=== PATIENT | male | born 1955 | race Caucasian/White ===

== ENCOUNTER → 2024-10-13 09:04 | Outpatient (CLI) | payer MEDICARE, SELFPAY ==
[2024-10-13 09:59] LABS: Hematocrit 44.5 % (41-53); Hemoglobin 15.6 g/dL (13.5-17.5); Mean Corpuscular HGB Conc 35.1 % (30-36); Mean Corpuscular Hemoglobin 33.4 PG (26-34); Mean Corpuscular Volume 95.1 fL (80-100); Platelet Count 262 X10^3/uL (150-400); Red Blood Cell Count 4.68 X10^6/uL (4.5-5.9); White Blood Cell Count 5.5 X10^3/uL (4.5-11.0)
[2024-10-13 10:19] LABS: Creatinine Urine Random 97.09 mg/dL
[2024-10-13 10:27] LABS: Microalbumin Urine Random < 0.6 mg/dL (0-1.6)
[2024-10-13 10:34] LABS: Alanine Aminotransferase 28 IU/L (<50); Albumin 4.6 g/dL (3.5-5.0); Albumin Globulin Ratio 1.8 (1.0-2.8); Alkaline Phosphatase 62 U/L (38-126); Aspartate Aminotransferase 31 IU/L (17-59); BUN Creatinine Ratio 15.2 (6-22); Bilirubin Total 1.1 mg/dL (0.2-1.3); Blood Urea Nitrogen 14 mg/dL (9-20); Calcium 9.7 mg/dL (8.4-10.2); Carbon Dioxide 27 mmol/L (22-32); Chloride 104 mmol/L (98-107); Cholesterol 229 mg/dL (140-199); Estimated Glomerular Filt Rate > 60 mL/min (>60); Globulin 2.5 g/dL (1.7-4.1); Glucose 113 mg/dL (80-110); HDL Cholesterol 75 mg/dL (40-60); HEMOLYSIS < 15 (0-50); LDL Cholesterol Calculated 138 mg/dL (<100); Potassium 5.7 mmol/L (3.4-5.1); Sodium 137 mmol/L (137-145); Total Protein 7.1 g/dL (6.3-8.2); Triglycerides 80 mg/dL (35-150)
== END ==
PROVIDERS: PCP Family Medicine; Referring Provider Family Medicine; Visit Provider Family Medicine
DX: I10 Essential (primary) hypertension (principal); E78.5 Hyperlipidemia, unspecified
CPT/HCPCS: 36415; 80053; 80061; 82043; 82570; 85027

== ENCOUNTER → 2024-10-18 09:04 | Outpatient (CLI) | payer MEDICARE, SELFPAY ==
[2024-10-18 11:14] LABS: BUN Creatinine Ratio 18.2 (6-22); Blood Urea Nitrogen 18 mg/dL (9-20); Calcium 10.3 mg/dL (8.4-10.2); Carbon Dioxide 28 mmol/L (22-32); Chloride 99 mmol/L (98-107); Estimated Glomerular Filt Rate > 60 mL/min (>60); Glucose 91 mg/dL (70-99); HEMOLYSIS < 15 (0-50); Potassium 4.7 mmol/L (3.4-5.1); Sodium 138 mmol/L (137-145)
[2024-10-18 11:45] LABS: Prostate Specific Antigen Scrn 1.13 ng/mL (0.1-4.0)
[2024-10-18 16:34] LABS: Hep C Virus Ab w/Reflex Quant NEGATIVE s/c (NEGATIVE)
== END ==
PROVIDERS: PCP Family Medicine; Referring Provider Family Medicine; Visit Provider Family Medicine
DX: Z12.5 Encounter for screening for malignant neoplasm of prostate (principal); E87.5 Hyperkalemia; Z11.59 Encounter for screening for other viral diseases
CPT/HCPCS: 80048; 86803; G0103

== ENCOUNTER 2025-01-12 07:56 | Day surgery (SDC) | payer MEDICARE, SELFPAY ==
[2025-01-12 08:31] VITALS: BP 170/93; PULSE 104; RESP 16; TEMP 36.2; O2SAT 98; BMI 23.3
[2025-01-12] MEDS: LACTATED RINGERS 1,000 ML 42 ML IV (08:44)
--- NOTE | 2025-01-12 08:47 | P.HP_ITS ---
History of Present Illness History of Present Illness Date Patient Seen: 01/12/25 Time Patient Seen: 08:47 Chief complaint: SDC Narrative: Pieter is a 70-year-old man with a history of polyps. His last colonoscopy was at [facility] about 7 years ago and he did not have polyps then but he did have polyps prior to that procedure. No family history of colon cancer. PFSH Medical History (Updated 10/17/24 @ 16:33 by rDe Coates MD) Rupture long head biceps tendon (08/12/12) Surgical History (Updated 10/13/24 @ 08:47 by Dre Coates MD) S/P vasectomy (01/02/88) H/O medial meniscus repair of right knee (11/01/03) Social History household members: spouse Smoking Status: Never smoker alcohol intake: current Meds Home Medications and Allergies Home Medications ?Medication ?Instructions ?Recorded ?Confirmed ?Type losartan 50 mg tablet 50 mg PO DAILY #90 tabs 09/2701/12/25 Rx sodium sul 1.479 gram-potas ch See Rx Instructions PO PER PKG DIR 11/08/24 Rx 0.188 gram-magnes sul 0.225 gram #24 tabs tablet (Sutab) Allergies Allergy/AdvReac Type Severity Reaction Status Date / Time No Known Drug Allergies Allergy Unverified 01/12/25 08:41 Exam Vital Signs (past 8 hours): - 01/12/25 08:31 Temperature 97.2 F L Pulse Rate 104 H Respiratory Rate 16 Blood Pressure 170/93 H Pulse Oximetry 98 Oxygen Delivery Method Room Air Oxygen Delivery Method Room Air Const General: healthy appearing Assessment & Plan Assessment and plan (1) History of colonic polyps: Status: Acute Assessment & Plan narrative: Colonoscopy Time-Based Coding :: [TOTAL MINUTES] spent with patient and on the chart (including review of chart, obtaining history, exam, reviewing outside data, placing orders, documenting exam and treatment plan, and counseling patient) on [DATE]. PROFEE Public Service Representative Document charge(s): No
--- NOTE | 2025-01-12 09:24 | EKG_ITS ---
[facility] [address] [address] Test Date: 2025-01-12 Pat Name: Pieter Grewal Department: [facility] Room: Gender: Male Front Desk Assistant: JOSÉ : 1955 Requested By: Order Number: [id number] Reading MD: Nick Poon Measurements Intervals [place] Rate: 104 P: [place]: QRS: 70 QRSD: 98 T: 3 QT: 340 QTc: 447 Interpretive Statements Atrial fibrillation with rapid ventricular response Electronically Signed On 01-12-2025 18:07:42 PDT by Nick Poon
--- NOTE | 2025-01-12 09:55 | SUR.PREOP ---
Pt. in endo and went in afib . 12 lead done . anethesia spoke to pt. and pt. transferred to e.d. on monitor . vital signs b/p 149/79 heart rate 110 afib. report given . at bedside .
== END 2025-01-12 11:46 | disposition home or self-care (01) ==
PROVIDERS: PCP Family Medicine; Referring Provider Surgery; Visit Provider Surgery
DX: Z12.11 Encounter for screening for malignant neoplasm of colon (principal); Z86.0100 Personal history of colon polyps, unspecified; I48.91 Unspecified atrial fibrillation; Z53.09 Procedure and treatment not carried out because of other contraindication
CPT/HCPCS: G0105; 71045; 80053; 82550; 83735; 84443; 84484; 85025; 85610; 85730; 93005; 99283; 99284; J2704

== ENCOUNTER 2025-01-12 09:50 | Emergency (ER) | payer MEDICARE, SELFPAY ==
[2025-01-12 09:52] VITALS: BP 149/94; PULSE 102; PULSE 124; RESP 15; RESP 20; TEMP 36.8; O2SAT 100; O2SAT 99; BMI 23.4
--- NOTE | 2025-01-12 09:56 | EKG_ITS ---
[address] [address] Test Date: 2025-01-12 Pat Name: Pieter Grewal Department: Room: Gender: Male Solutions Analyst: ОЛЕГ : 1955 Requested By: Order Number: [id number] Reading MD: Nick Poon Measurements Intervals [place] Rate: 98 P: [place]: QRS: 64 QRSD: 90 T: -3 QT: 340 QTc: 434 Interpretive Statements Atrial fibrillation T wave abnormality, consider anterior ischemia Electronically Signed On 01-12-2025 18:08:10 PDT by iNck Poon
[2025-01-12 10:00] VITALS: PULSE 95; RESP 12; O2SAT 100
--- NOTE | 2025-01-12 10:02 | ED_ITS ---
HPI - Arrhythmia/Palpitations General Chief Complaint: Arrhythmia/Palpitations Stated Complaint: Afib Time Seen by Provider: 01/12/25 09:59 Source: patient and RN notes reviewed Mode of arrival: other History of Present Illness HPI narrative: Patient brought over from operating room. Patient was being prepared for colonoscopy. Patient had palpitations and on monitor was in AFib with RVR. He feels much better now. Never any chest pain no syncope. No dyspnea. No prior history AFib. No recent chest pain shortness of breath. Patient has swims 3 times a weekend has never experienced palpitations dizziness shortness of breath or chest pain. No prior history of thyroid disease. Related Data Home Medications ?Medication ?Instructions ?Recorded ?Confirmed apixaban 5 mg tablet 5 mg PO DAILY 01/18/25 nebivolol 10 mg tablet mg PO 01/18/25 01/18/25 rosuvastatin 5 mg tablet mg PO 01/18/25 01/18/25 Allergies Allergy/AdvReac Type Severity Reaction Status Date / Time No Known Drug Allergies Allergy Verified 01/18/25 10:17 Review of Systems Review of Systems Narrative: GENERAL: Negative chills, fatigue, malaise, fever, sweats. HEENT: Negative sinus pain, ear pain, sore throat RESPIRATORY: Negative dyspnea, cough CARDIOVASCULAR: Negative chest pain, positive palpitations GASTROINTESTINAL: Negative vomiting, nausea, abdominal pain : Negative dysuria, frequency, hematuria MUSCULOSKELETAL: Negative muscle or bony pain SKIN: Negative rash, skin lesions NEUROLOGIC: Negative weakness, numbness ROS Unobtainable: All systems reviewed & are unremarkable except as noted in HPI and below Patient History Medical History (Updated 01/12/25 @ 11:44 by Temo Alfonso MD) Rupture long head biceps tendon (08/12/12) Surgical History (Updated 10/13/24 @ 08:47 by Dre Coates MD) S/P vasectomy (01/02/88) H/O medial meniscus repair of right knee (11/01/03) Social History household members: spouse alcohol intake: current Smoking Status: Never smoker Exam Narrative Exam Narrative: GENERAL: in no distress, not toxic not dyspneic HEAD: Normocephalic. EYES: Pupils equal round ENT: Mucous membranes moist. NECK: Trachea midline. CARDIOVASCULAR: Irregular irregular rate and rhythm RESPIRATORY: Clear to auscultation. Breath sounds equal bilaterally. No wheezes, rales, or rhonchi. GASTROINTESTINAL: Abdomen soft, non-tender EXTREMITIES: No gross deformities. BACK: No flank tenderness. NEURO: AOx4. Clear speech SKIN: Warm and dry PSYCH: Not anxious, is cooperative Initial Vital Signs Initial Vital Signs: Vital Signs Temperature 98.2 F 01/12/25 09:52 Pulse Rate 124 H 01/12/25 09:52 Respiratory Rate 20 01/12/25 09:52 Blood Pressure 149/94 H 01/12/25 09:52 Pulse Oximetry 100 01/12/25 09:52 Oxygen Delivery Method Room Air 01/12/25 09:52 Course Orders Ordered: Discontinued Medications Apixaban (Apixaban 5 Mg Tablet) 5 mg PO NOW ONE Stop: 01/12/25 11:18 Last Admin: 01/12/25 11:25 Dose: 5 mg Documented By: SUKHWINDER Vital Signs Vital signs: Vital Signs - 8 hr 01/12/25 09:52 01/12/25 09:52 01/12/25 10:00 Temperature 98.2 F Pulse Rate 124 H 102 H 95 H Respiratory Rate 20 15 12 Blood Pressure 149/94 H Pulse Oximetry 100 99 100 Oxygen Delivery Method Room Air 01/12/25 10:11 01/12/25 10:11 01/12/25 10:30 Temperature Pulse Rate 84 Respiratory Rate 13 Blood Pressure 167/101 H 147/82 H Pulse Oximetry 99 Oxygen Delivery Method 01/12/25 10:30 01/12/25 11:00 01/12/25 11:00 Temperature Pulse Rate 84 86 Respiratory Rate 16 12 Blood Pressure 148/79 H Pulse Oximetry 98 99 Oxygen Delivery Method MDM - Arrhythmia/Palpitations Lab Data 01/12/25 09:50 01/12/25 09:50 Labs: Lab Results 01/12/25 Range/Units 09:50 WBC 5.7 (4.5-11.0) X10^3/uL RBC 4.74 (4.5-5.9) X10^6/uL Hgb 15.7 (13.5-17.5) g/dL Hct 44.7 (41-53) % MCV 94.2 (80-100) fL MCH 33.1 (26-34) PG MCHC 35.1 (30-36) % RDW 12.2 (11.6-14.8) % Plt Count 253 (150-400) X10^3/uL Neut % (Auto) 63.7 (50-75) % Lymph % (Auto) 27.3 (25-40) % [place] % (Auto) 8.1 (3-14) % Eos % (Auto) 0.2 L (2-4) % Baso % (Auto) 0.7 (0-2) % Neut # (Auto) 3600 (3911-4966) /uL Lymph # (Auto) 1500 (7116-5796) /uL [place] # (Auto) 500 (0-900) /uL Eos # (Auto) 0 (0-450) /uL Baso # (Auto) 0 (0-100) /uL PT 12.0 (9.4-12.5) SECONDS INR 1.1 (0.9-1.3) APTT 29 (25.1-36.5) SECONDS Sodium 134 L (137-145) mmol/L Potassium 4.4 (3.4-5.1) mmol/L Chloride 103 (98-107) mmol/L Carbon Dioxide 22 (22-32) mmol/L BUN 12 (9-20) mg/dL Creatinine 0.86 (0.66-1.25) mg/dL Estimated GFR > 60 (>60) mL/min BUN/Creatinine Ratio 14.0 (6-22) Glucose 108 H (70-99) mg/dL Calcium 9.1 (8.4-10.2) mg/dL Magnesium 2.0 (1.6-2.3) mg/dL Total Bilirubin 1.4 H (0.2-1.3) mg/dL AST 37 (17-59) IU/L ALT 28 (<50) IU/L Alkaline Phosphatase 59 (38-126) U/L Total Creatine Kinase 68 (55-170) U/L Troponin I < 0.012 (0.01-0.034) ng/mL Total Protein 7.0 (6.3-8.2) g/dL Albumin 4.3 (3.5-5.0) g/dL Globulin 2.7 (1.7-4.1) g/dL Albumin/Globulin Ratio 1.6 (1.0-2.8) TSH 2.56 (0.47-4.68) uIU/mL Imaging Data Chest x-ray: Radiologist's Impresson: [address] [address] XRay Report Signed Patient: Pieter Grewal MR#: [id number] : 1955 Acct:[id number] Age/Sex: 70 / M Date of Service: 01/12/25 Loc: ED Accession Number: [id number] Procedure: XR chest 1V Ordering Provider: Temo Alfonso MD PROCEDURE: XR CHEST 1V INDICATIONS: Chest pain TECHNIQUE: One view of the chest was acquired. COMPARISON: None. FINDINGS: Surgical changes and devices: None. Lungs and pleura: Lungs are clear. No pleural effusions or pneumothorax. Mediastinum: Mediastinal contours appear normal. Heart size is normal. Bones and chest wall: No suspicious bony lesions. Overlying soft tissues appear unremarkable. IMPRESSION: No acute cardiopulmonary abnormality is seen. Dictated by: Florencio Lewis M.D. on 01/12/2025 at 10:45 Approved by: Florencio Lewis M.D. on 01/12/2025 at 10:46 [facility] Narrative Medical decision making narrative: Patient brought over from operating room. Patient was being prepared for colonoscopy. Patient had palpitations and on monitor was in AFib with RVR. He feels much better now. Never any chest pain no syncope. No dyspnea. No prior history AFib. No recent chest pain shortness of breath. Patient has swims 3 times a weekend has never experienced palpitations dizziness shortness of breath or chest pain. No prior history of thyroid disease. After history and exam, CBC CMP magnesium TSH chest x-ray equipment monitor phototypesetting EKG troponin, patient was given 4 mg of metoprolol prior to arrival from the OR. [facility] Medical records reviewed: No recent visit for this complaint Differential considered: Includes but not limited to new onset AFib Lab Test results independently reviewed as above. Pertinent findings: WBC 5.7 hemoglobin 15.7 INR 1.1 sodium 134 potassium 4.4 BUN 12 creatinine 0.86 magnesium 2.0 troponin less than 0.012 TSH 2.56 Independently reviewed EKG atrial fibrillation rate [address] elevation or depression Repeat EKG at 10:20 a.m.. Normal sinus rhythm rate 82 Imaging studies independently reviewed: Chest x-ray no acute finding Consultations: 11:10 a.m.. Spoke with Cardiology dr chandra, patient does not need echocardiogram today. Can start Eliquis and metoprolol XL 25 mg daily. Patient can follow up in his clinic. Re-evaluations: 11:15 a.m.. Updated patient results and my discussion with cardiology services. He does desire prescription for Eliquis and metoprolol. He will discontinue any other blood pressure medication. Return precautions reviewed. Referral for cardiology services provided. He desires discharge home. Reviewed with them risks and benefits of anticoagulation including but not limited to spontaneous bleeds. Benefits is protective for stroke. Discussion: Appropriate for discharge home exam is reassuring. Patient converted to sinus rhythm during course of stay no cardioversion indicated. Cardiology service contacted. Medications have been started. They desire discharge home. Diagnosis: New onset atrial fibrillation Discharge Plan Departure Patient Disposition: Home Clinical Impression: Atrial fibrillation Qualifiers: Atrial fibrillation type: unspecified Qualified Code(s): I48.91 - Unspecified atrial fibrillation Instructions: DI for Atrial Fibrillation Activity Restrictions/Additional Instructions: Please discontinue any other blood pressure medications you are currently taking. New medication has been prescribed for you. Eliquis blood thinner has been prescribed and started for you today. Please call provided cardiology office today for follow up in the office regarding your new finding of atrial fibrillation. Return if worse if any questions or concerns Prescriptions: No Action rosuvastatin 5 mg tablet PO nebivolol 10 mg tablet PO apixaban 5 mg tablet 5 mg PO DAILY Referrals: Dre Coates MD [Primary Care Provider, Family Practice] Jamal Chandra MD [Physician, Cardiology] Stand Alone Forms: Patient Portal/API
[2025-01-12 10:09] LABS: Add Manual Diff / Slide Review NO; Hematocrit 44.7 % (41-53); Hemoglobin 15.7 g/dL (13.5-17.5); Lymphocytes Absolute Auto 1500 /uL (1100-4500); Mean Corpuscular HGB Conc 35.1 % (30-36); Mean Corpuscular Hemoglobin 33.1 PG (26-34); Mean Corpuscular Volume 94.2 fL (80-100); Platelet Count 253 X10^3/uL (150-400)
[2025-01-12 10:10] LABS: INR 1.1 (0.9-1.3); Prothrombin Time 12.0 SECONDS (9.4-12.5)
[2025-01-12 10:11] VITALS: BP 167/101; PULSE 84; RESP 13; O2SAT 99
[2025-01-12 10:13] LABS: PTT Partial Thromboplastin Tim 29 SECONDS (25.1-36.5)
[2025-01-12 10:15] LABS: Alanine Aminotransferase 28 IU/L (<50); Albumin 4.3 g/dL (3.5-5.0); Albumin Globulin Ratio 1.6 (1.0-2.8); Alkaline Phosphatase 59 U/L (38-126); Blood Urea Nitrogen 12 mg/dL (9-20); Calcium 9.1 mg/dL (8.4-10.2); Carbon Dioxide 22 mmol/L (22-32); Chloride 103 mmol/L (98-107); Creatine Kinase 68 U/L (55-170); Estimated Glomerular Filt Rate > 60 mL/min (>60); Globulin 2.7 g/dL (1.7-4.1); Glucose 108 mg/dL (70-99); HEMOLYSIS 46 (0-50); Magnesium 2.0 mg/dL (1.6-2.3); Potassium 4.4 mmol/L (3.4-5.1); Sodium 134 mmol/L (137-145); Total Protein 7.0 g/dL (6.3-8.2)
--- NOTE | 2025-01-12 10:20 | EKG_ITS ---
[address] [address] Test Date: 2025-01-12 Pat Name: Pieter Grewal Department: [facility] Room: Gender: Male Park Recreation Manager: MARION : 1955 Requested By: Order Number: [id number] Reading MD: Nick Poon Measurements Intervals [place] Rate: 82 P: 67 SC: 150 QRS: 63 QRSD: 90 T: 15 QT: 362 QTc: 422 Interpretive Statements Normal sinus rhythm with sinus arrhythmia Nonspecific T wave abnormality Electronically Signed On 01-12-2025 18:08:27 PDT by Nick Poon
[2025-01-12 10:27] LABS: Troponin I < 0.012 ng/mL (0.01-0.034)
[2025-01-12 10:30] VITALS: BP 147/82; PULSE 84; RESP 16; O2SAT 98
[2025-01-12 10:46] LABS: Thyroid Stimulating Hormone 2.56 uIU/mL (0.47-4.68)
[2025-01-12 11:00] VITALS: BP 148/79; PULSE 86; RESP 12; O2SAT 99
[2025-01-12] MEDS: APIXABAN 5 MG TABLET PO (11:25)
[2025-01-12 11:58] VITALS: BP 145/74; PULSE 62; RESP 14; O2SAT 99
== END 2025-01-12 12:00 | disposition home or self-care (01) ==
PROVIDERS: Emergency Provider Emergency Medicine; PCP Family Medicine
DX: I48.91 Unspecified atrial fibrillation (principal)
CPT/HCPCS: 71045; 80053; 82550; 83735; 84443; 84484; 85025; 85610; 85730; 93005

== ENCOUNTER → 2025-01-25 06:51 | Outpatient (CLI) | payer MEDICARE, SELFPAY ==
--- NOTE | 2025-01-25 06:58 | DI.ECHO.S_ITS ---
[facility] : : [address] [place] [address] : : [address] : : Phone: [phone] Echocardiogram Report + + :Name: ADELITA FOLEY Study Date: 01/25/2025 Height: 72 in : :Hospital ReadingLocation: Weight: 173 lb : : Gender: Male BSA: 2.0 m2 : :: 1955 Age: 70 yrs BP: 155/81 mmHg: :Reason For Study: PAROXYSMAL ATRIAL FIBRILLATION : :Ordering Physician: RENETTA, : :SHARON Performed By: Lani Flaherty : :Referring: SHARON FALCON : + + Interpretation Summary 1) Normal left ventricular thickness, size, wall motion, and systolic function (EF 60-65%). 2) Normal right ventricular size and function. 3) No significant valvular abnormalities. 4) No prior Echo available for comparison. Procedure: A two-dimensional transthoracic echocardiogram with color flow and Doppler was performed. The study quality was technically adequate. There is no prior echocardiogram noted for this patient. The patient was in sinus rhythm with heart rates between 65-77 bpm during the exam. Left Ventricle: The left ventricle is normal in size and wall thickness. The ejection fraction is estimated to be 60-65%. Left ventricular systolic function appears normal without focal wall motion abnormalities. Normal diastolic function. Right Ventricle: The right ventricle is normal in size and function. Atria: The left atrium is moderately dilated. Right atrial size is normal. There is no Doppler evidence for an interatrial shunt. Mitral Valve: The mitral valve leaflets appear to open well. There is trace mitral regurgitation. Aortic Valve: The aortic valve is trileaflet. The aortic valve opens well. There is no aortic valve stenosis. No aortic regurgitation is present. Tricuspid Valve: The tricuspid valve leaflets are thin and pliable. There is trace tricuspid regurgitation. The right ventricular systolic pressure is estimated to be at least 35 mmHg based on an estimated right atrial pressure of 3 mm Hg. Pulmonic Valve: The pulmonic valve leaflets are thin and pliable; valve motion is normal. There is trace pulmonic regurgitation. Great Vessels: The aortic root is normal size. The dimensions of the ascending aorta are normal. The IVC is of normal diameter and collapses greater than 50% with a sniff. This suggests a low right atrial pressure of 3 mm Hg. Pericardium/ Pleura There is no pericardial effusion. There is no pleural effusion. MMode/2D Measurements & Calculations LVIDd: 5.0 cm LVOT diam: 2.2 cm LVIDs: 3.2 cm Ao root diam: 3.8 cm FS: 35.7 % asc Aorta Diam: 3.2 cm IVSd: 0.76 cm LVPWd: 0.71 cm LV jurado. diameter/BSA (cm/m^2): 2.5 LV sys. diameter/BSA (cm/m^2): 1.6 LA A2 area: 23.0 cm2 RA long axis: 5.6 cm LA A4 area: 19.2 cm2 RA area: 17.5 cm2 LA length (vol): 5.3 cm RA vol: 46.8 ml LA vol: 70.3 ml RA : 23.3 ml/m2 LA vol index: 35.1 ml/m2 IVC diam: 1.4 cm RVD1 (basal): 3.6 cm TAPSE: 2.3 cm Doppler Measurements & Calculations Ao V2 max: 118.9 cm/sec LVOT Max Husam: 80.8 cm/sec Ao V2 mean: 82.5 cm/sec LV V1 max P.6 mmHg Ao max P.7 mmHg LV V1 VTI: 17.1 cm Ao mean P.0 mmHg ARIANNA(I,D): 2.8 cm2 Ao V2 VTI: 22.8 cm ARIANNA(V,D): 2.5 cm2 sev ratio: 0.75 ARIANNA indexed to BSA (cm^2/m^2): 1.4 MV E max husam: 71.9 cm/sec TR max husam: 282.5 cm/sec MV A max husam: 41.2 cm/sec TR max P.9 mmHg MV E/A: 1.7 PA V2 max: 92.4 cm/sec Med Peak E' Husam: 9.9 cm/sec PA V2 mean: 63.2 cm/sec E/E' med: 7.2 PA mean P.8 mmHg Lat Peak E' Husam: 14.9 cm/sec PA pr(Accel): 37.0 mmHg E/E' lat: 4.8 E/e' average: 6.0 MV dec time: 0.22 sec SV(LVOT): 63.8 ml Reading Physician:12:53 PM
== END ==
LOC: ECHO 06:52
PROVIDERS: PCP Family Medicine; Referring Provider Internal Medicine Cardiovascular Disease; Visit Provider Internal Medicine Cardiovascular Disease
DX: I48.0 Paroxysmal atrial fibrillation (principal)
CPT/HCPCS: 93306

== ENCOUNTER → 2025-01-31 14:37 | Outpatient (CLI) | payer MEDICARE, SELFPAY | PROVIDERS: PCP Family Medicine; Visit Provider Nurse Practitioner Family | DX: J02.9 Acute pharyngitis, unspecified (principal) | CPT/HCPCS: 87070 ==

== ENCOUNTER → 2025-04-18 07:15 | Outpatient (CLI) | payer MEDICARE, SELFPAY ==
[2025-04-18 08:08] LABS: Hematocrit 45.9 % (41-53); Hemoglobin 16.2 g/dL (13.5-17.5); Mean Corpuscular HGB Conc 35.2 % (30-36); Mean Corpuscular Hemoglobin 32.9 PG (26-34); Mean Corpuscular Volume 93.3 fL (80-100); Platelet Count 243 X10^3/uL (150-400)
[2025-04-18 08:38] LABS: Blood Urea Nitrogen 18 mg/dL (9-20); Calcium 9.8 mg/dL (8.4-10.2); Carbon Dioxide 26 mmol/L (22-32); Chloride 102 mmol/L (98-107); Cholesterol 189 mg/dL (140-199); Estimated Glomerular Filt Rate > 60 mL/min (>60); Glucose 114 mg/dL (70-99); HDL Cholesterol 83 mg/dL (40-60); HEMOLYSIS < 15 (0-50); Potassium 4.9 mmol/L (3.4-5.1); Sodium 138 mmol/L (137-145); Triglycerides 116 mg/dL (35-150)
== END ==
PROVIDERS: PCP Family Medicine; Referring Provider Internal Medicine Cardiovascular Disease; Visit Provider Internal Medicine Cardiovascular Disease
DX: E78.5 Hyperlipidemia, unspecified (principal); I10 Essential (primary) hypertension
CPT/HCPCS: 36415; 80048; 80061; 85027